=== PATIENT | female | born 1980 | race Caucasian/White ===

== ENCOUNTER 2018-09-21 12:21 | Emergency (ER) | payer MEDICAID ==
[~2018-09-21] VITALS: Ht 152.4 cm; Wt 54.0 kg
[~2018-09-21 12:21] MED LIST: AMOX500 PO; BENZ100A PO; CEPH500 PO; ERYT.5TO RIGHTEYE; GUAI120S1 PO; HYDACE5 PO; LORA10ER PO; ONDA4ODT MM; PROCODE120 PO; Percocet 5-3251 EACH PO; Prednisone20 MG PO; Pseudoephedrine30 MG PO; SULTRIDS PO; Zithromax250 MG PO; Zofran4 MG PO
== END 2018-09-21 13:05 | disposition home or self-care (01) ==
LOC: ER 12:21
DX: J20.9 Acute bronchitis, unspecified (principal); J06.9 Acute upper respiratory infection, unspecified; F17.210 Nicotine dependence, cigarettes, uncomplicated
CPT/HCPCS: 99282

== ENCOUNTER 2018-12-14 20:01 | Emergency (ER) | payer OTHER ==
[~2018-12-14] VITALS: Ht 152.4 cm; Wt 52.2 kg
== END 2018-12-14 20:38 | disposition home or self-care (01) ==
LOC: ER 20:01
DX: F32.9 Major depressive disorder, single episode, unspecified (principal); R53.83 Other fatigue; F17.210 Nicotine dependence, cigarettes, uncomplicated
CPT/HCPCS: 99283

== ENCOUNTER 2018-12-17 10:26 | Emergency (ER) | payer OTHER ==
[~2018-12-17] VITALS: Ht 152.4 cm; Wt 52.2 kg
[2018-12-17 11:22] LABS: Source, Urine Voided
[2018-12-17 11:32] LABS: Bilirubin, Urine Neg (Neg); Blood, Urine 1+ (Neg); Glucose Qualitative, Urine Neg (Neg); Ketones, Urine Neg (Neg); Leukocyte Esterase, Urine Neg (Neg); Nitrite, Urine Pos (Neg); Protein, Urine Neg (Neg); Urobilinogen, Urine NORM (Normal)
[2018-12-17 11:40] LABS: BASOPHILS ABSOLUTE AUTO 0.04 K/mm3 (0.00-0.23); BASOPHILS PERCENT AUTO 1 % (0-2); EOSINOPHILS ABSOLUTE AUTO 0.15 K/mm3 (0.00-0.68); EOSINOPHILS PERCENT AUTO 2 % (0-6); Hematocrit 44.1 % (33.0-51.0); Hemoglobin 14.3 g/dL (11.5-16.0); IMMATURE GRAN ABSOLUTE AUTO 0.01 K/mm3 (0.00-0.10); IMMATURE GRAN PERCENT AUTO 0 % (0-1); LYMPHOCYTES PERCENT AUTO 20 % (21-46); MONOCYTES ABSOLUTE AUTO 0.62 K/mm3 (0.16-1.47); MONOCYTES PERCENT AUTO 8 % (4-13); Mean Corpuscular HGB 31.4 pg (26.0-34.0); Mean Corpuscular HGB Conc 32.4 g/dL (31.5-36.5); Mean Corpuscular Volume 97 fL (80-100); Mean Platelet Volume 8.5 fL (9.1-12.4); NEUTROPHILS ABSOLUTE AUTO 5.59 K/mm3 (1.96-9.15); NEUTROPHILS PERCENT AUTO 70 % (41-73); Platelet Count 410 K/mm3 (150-400); RDW Coefficient Variation 13.2 % (11.7-14.2); RDW Standard Deviation 47.1 fL (35.1-46.3); Red Blood Cell Count 4.55 M/mm3 (3.80-5.20); White Blood Cell Count 8.01 K/mm3 (4.00-11.30)
[2018-12-17 11:44] LABS: Appearance, Urine Clear (Clear); Color, Urine Yellow (P-Yellow)
[2018-12-17 11:45] LABS: U Amphetamine Screen Not Detected
[2018-12-17 11:46] LABS: Bacteria Many /hpf; Squamous Epithelial Cells Few /hpf (Few); U Barbituate Screen Not Detected; U Benzodiazapine Screen Not Detected; U Buprenorphine Screen Not Detected; U Cannabinoids Screen Not Detected; U Cocaine Screen Not Detected; U Methadone Screen Not Detected; U Methamphetamine Screen Not Detected; U Opiates Screen Not Detected; U Oxycodone Screen Not Detected; U Phencyclidine Screen Not Detected; U Propoxyphene Screen Not Detected
[2018-12-17 12:06] LABS: Alanine Aminotransfer (ALT/SGP 17 U/L (12-78); Albumin, Blood 3.6 g/dL (3.4-5.0); Alk Phos 61 U/L (50-136); Anion Gap 5 mmol/L (6-16); Aspartate Aminotrans (AST/SGOT 8 U/L (12-37); Beta HCG, Quantitative, Serum <1 mIU/mL (0-3); Bilirubin, Total 0.3 mg/dL (0.1-1.0); Blood Urea Nitrogen 11 mg/dL (8-24); Bun/Creatinine Ratio 16.2 (12.0-20.0); CO2, Blood 26 mmol/L (21-32); Calcium, Blood 8.2 mg/dL (8.5-10.1); Chloride, Blood 110 mmol/L (98-108); Creatinine, Blood 0.68 mg/dL (0.40-1.00); Ethanol (Alcohol), Blood, Med <3 mg/dL; Globulin, Blood 3.6 g/dL (2.2-4.0); Glomerular Filtration Rate >60 (60-); Glucose, Blood 94 mg/dL (70-99); Potassium, Blood 3.8 mmol/L (3.5-5.5); Sodium, Blood 141 mmol/L (136-145); Total Protein, Blood 7.2 g/dL (6.4-8.2)
== END 2018-12-17 12:45 | disposition home or self-care (01) ==
LOC: ER 10:26
PROVIDERS: Emergency Medicine
DX: S09.90XA Unspecified injury of head, initial encounter (principal); N39.0 Urinary tract infection, site not specified; Z72.89 Other problems related to lifestyle; W01.198A Fall on same level from slipping, tripping and stumbling with subsequent striking against other object, initial encounter; F17.210 Nicotine dependence, cigarettes, uncomplicated
CPT/HCPCS: 36415; 70450; 80053; 81001; 84443; 84702; 85025; 87077; 87086; 87186; 93005; 93010; 99284-25; G0480

== ENCOUNTER 2020-11-22 09:29 | Emergency (ER) | payer OTHER ==
[~2020-11-22] VITALS: Ht 152.4 cm; Wt 56.7 kg
== END 2020-11-22 11:24 | disposition home or self-care (01) ==
LOC: ER 09:29
DX: L25.9 Unspecified contact dermatitis, unspecified cause (principal); Z87.891 Personal history of nicotine dependence
CPT/HCPCS: 36415; 96372; 99283-25; J3301

== ENCOUNTER 2022-04-28 00:28 | Emergency (ER) | payer OTHER ==
[~2022-04-28] VITALS: Ht 152.4 cm; Wt 59.0 kg
== END 2022-04-28 05:54 | disposition home or self-care (01) ==
LOC: ER 00:28
DX: M72.2 Plantar fascial fibromatosis (principal); Z87.891 Personal history of nicotine dependence
CPT/HCPCS: A9270

== ENCOUNTER → 2022-12-31 | Outpatient (CLI) | payer OTHER | END | disposition home or self-care (01) | LOC: LAB SHORT 14:35 → LAB 14:35 | DX: N75.0 Cyst of Bartholin's gland (principal) | CPT/HCPCS: 87070; 87075; 87205 ==

== ENCOUNTER 2024-11-15 14:19 | Emergency (ER) | payer OTHER ==
[~2024-11-15] VITALS: Ht 152.4 cm; Wt 59.0 kg
[2024-11-15 14:29] VITALS: BP 153/90
[2024-11-15] MEDS ORDERED: CEPH500 PO (14:33)
== END 2024-11-15 14:33 | disposition home or self-care (01) ==
LOC: ER 14:19
DX: L03.313 Cellulitis of chest wall (principal); Z87.891 Personal history of nicotine dependence
CPT/HCPCS: 99282